=== PATIENT | female | born 1985 | race Caucasian/White ===

== ENCOUNTER 2017-05-30 10:11 | Outpatient (CLI) | payer OTHER ==
[~2017-05-30 10:11] MED LIST: ASPIR 8181 M1 PO; ASPIRIN E.C.81 M1 PO; COLACE100 MG PO; ENDOCET 5-3251 EACH PO; LOVENOX40 MG/0.4 PO; LOVENOX40 MG/0.4 SC; Lovenox SC; MOTRIN800 MG PO; Motrin PO; PREFERA-OB P1 TABLET PO; PRENATAL TABLE1 EACH PO; PRENATAL1 EACH PO; Percocet 5/325,Endoc PO; SKELAXIN800 MG PO; [UNRECOGNIZED DRUG - OTHER]
[2017-05-30 10:27] VITALS: BP 122/66
== END 2017-05-30 11:45 | disposition home or self-care (01) ==
LOC: LDRP-OP 10:11 → 2WEST 10:12 → LDRP-OP 07-16 14:02
DX: O99.113 Other diseases of the blood and blood-forming organs and certain disorders involving the immune mechanism complicating pregnancy, third trimester (principal); D68.52 Prothrombin gene mutation; Z3A.37 37 weeks gestation of pregnancy
CPT/HCPCS: 59025; G0378

== ENCOUNTER 2017-06-08 05:40 | Inpatient (IN) | payer OTHER ==
[2017-06-08] VITALS (9 sets, daily range): BP systolic 135–146; BP diastolic 70–97
[~2017-06-08] VITALS: Ht 149.9 cm; Wt 68.9 kg
[~2017-06-08 05:40] MED LIST changes: +ASPIRIN81 M2 PO; +HEPARIN SO5000 UNIT3 SC
[2017-06-08 06:53] LABS: EOSINOPHIL (%) 0.7 % (0-5); EOSINOPHIL COUNT 0.1 K/uL (0-0.3); HEMATOCRIT 28.5 % (36.0-46.0); IMMATURE GRANULOCYTE (%) 1.1 % (0.0-0.7); IMMATURE GRANULOCYTE COUNT 0.1 K/uL; INSTRUMENT ABS NEUTROPHIL CT 5.4 K/uL; LYMPHOCYTE COUNT 1.9 K/uL (1.0-2.8); MCH 27.8 PG (29.0-34.0); MCHC 32.6 G/DL (30.0-36.0); MCV 85.3 FL (83-99); MEAN PLAT.VOLUME 12.2 uM^3 (9.5-12.4); MONOCYTE (%) 7.8 % (3-12); MONOCYTE COUNT 0.6 K/uL (0-0.8); NEUTROPHIL COUNT 5.4 K/uL (1.8-6.4); PLATELET COUNT 150 K/uL (156-360); RBC DIS.WIDTH-CV 14.8 % (11.8-14.6); RED BLOOD COUNT 3.34 M/uL (3.80-5.20); WHITE BLOOD COUNT 8.1 K/uL (4.1-10.2)
[2017-06-08 07:11] LABS: PROTHROMBIN TIME 11.8 SEC (10.2-12.9)
[2017-06-08 07:14] LABS: PTT 26.9 SEC (25-37)
[2017-06-08] MEDS ORDERED: IBUPROFEN800 MG PO (09:23)
[2017-06-08] MEDS ORDERED: ENDOCET 5-3251 EACH PO (09:24)
[2017-06-09 06:32] LABS: EOSINOPHIL (%) 0.4 % (0-5); HEMATOCRIT 24.9 % (36.0-46.0); IMMATURE GRANULOCYTE COUNT 0.1 K/uL; INSTRUMENT ABS NEUTROPHIL CT 5.1 K/uL; LYMPHOCYTE COUNT 1.9 K/uL (1.0-2.8); MCH 26.8 PG (29.0-34.0); MCHC 31.3 G/DL (30.0-36.0); MCV 85.6 FL (83-99); MEAN PLAT.VOLUME 11.4 uM^3 (9.5-12.4); MONOCYTE (%) 7.9 % (3-12); MONOCYTE COUNT 0.6 K/uL (0-0.8); NEUTROPHIL (%) 65.9 % (45-76); NEUTROPHIL COUNT 5.1 K/uL (1.8-6.4); NRBC (%) 0.3 /100 WBC (0-0); PLATELET COUNT 127 K/uL (156-360); RBC DIS.WIDTH-CV 14.7 % (11.8-14.6); RBC DIS.WIDTH-SD 45.9 % (39-53); RED BLOOD COUNT 2.91 M/uL (3.80-5.20); WHITE BLOOD COUNT 7.8 K/uL (4.1-10.2)
[2017-06-09 07:45] VITALS: BP 134/81
[2017-06-09 11:00] VITALS: BP 133/77
[2017-06-09 14:10] VITALS: BP 133/74
[2017-06-09 19:38] VITALS: BP 127/75
[2017-06-09 23:00] VITALS: BP 130/76
[2017-06-10 02:40] VITALS: BP 140/73
[2017-06-10 07:26] VITALS: BP 142/87
[2017-06-10] MEDS ORDERED: LOVENOX40 MG/0.4 SC (09:25)
== END 2017-06-10 13:07 | disposition home or self-care (01) | DRG 765 ==
LOC: 2WEST 05:40 → 2SOUTH 08:30 → 2WEST 06-10 13:07
PROVIDERS: Obstetrics & Gynecology
PROC: 10D00Z1 Extraction of Products of Conception, Low, Open Approach (ICD-10-PCS; principal; 2017-06-08)
PROC: 0TQB0ZZ Repair Bladder, Open Approach (ICD-10-PCS; principal; 2017-06-08)
DX: O34.211 Maternal care for low transverse scar from previous cesarean delivery (principal); D68.52 Prothrombin gene mutation; N85.8 Other specified noninflammatory disorders of uterus; O71.89 Other specified obstetric trauma; O99.12 Other diseases of the blood and blood-forming organs and certain disorders involving the immune mechanism complicating childbirth; Z3A.39 39 weeks gestation of pregnancy; Z37.0 Single live birth; Z82.49 Family history of ischemic heart disease and other diseases of the circulatory system; Z83.3 Family history of diabetes mellitus
CPT/HCPCS: 36415; 85025; 85610; 85730; 86850; 86900; 86901; J0690; J1100; J1200; J1650; J2175; J2270; J2274; J2405; J7120